=== PATIENT | female | born 1985 | race Caucasian/White ===

== ENCOUNTER 2016-06-29 12:49 | Emergency (ER) | payer OTHER ==
[~2016-06-29] VITALS: Ht 152.4 cm; Wt 80.2 kg
[~2016-06-29 12:49] MED LIST: ADDERALL20 MG PO; ADDERALL30 MG PO; ALBUTEROL SULF8.5 GM IH; AUGMENTIN875 MG PO; Adderall XR; CLONIDINE HCL0.1 MG PO; DILAUDID2 MG PO; EFFEXOR XR150 MG PO; HYDROCODON-ACE1 EAC7 PO; KLONOPIN0.5 M1 PO; KLONOPIN1 MG PO; KLONOPIN2 MG PO; LEVAQUIN500 MG PO; LEXAPRO20 MG PO; METHADONE HCL40 MG PO; NOHOMEMEDS; OXCARBAZEPINE300 MG PO; PERCOCET 5/31 TABLET PO; PHENERGAN25 MG PR; PREDNISONE20 MG PO; PROMETHAZINE HC25 M1 PO; RISPERDAL2 MG PO; SAPHRIS5 MG SL; SEROQUEL50 MG PO; SERTRALINE HCL50 MG PO; TESSALON PERLE100 MG PO; TRAZODONE HCL50 MG PO; XANAX1 MG; XANAX1 MG PO; XANAX2 MG PO; ZOFRAN ODT4 MG PO; ZOLOFT100 MG PO
[2016-06-29] MEDS ORDERED: SEROQUEL100 MG PO (13:51)
[2016-06-29] MEDS ORDERED: NEURONTIN400 MG PO (13:52)
[2016-06-29] MEDS ORDERED: RISPERDAL2 MG PO (13:53)
[2016-06-29 14:03] LABS: ADD MIUA? NO; BILIRUBIN NEGATIVE; BLOOD NEGATIVE; COLOR YELLOW ((YELLOW)); GLUCOSE (STRIP) NEGATIVE; KETONES NEGATIVE; LEUKOCYTES NEGATIVE; NITRITE NEGATIVE; PH, URINE 6.5 (5-8); PROTEIN (STRIP) NEGATIVE; SPECIFIC GRAVITY 1.005 (1.000-1.030); UCUL ADDED? NO; UROBILINOGEN 0.2 MG/DL (0.2-1.0)
[2016-06-29 14:05] LABS: INTERNAL CONTROL VALID? YES
[2016-06-29] MEDS ORDERED: ZITHROMAX Z-PA250 MG PO (14:14)
[2016-06-29] MEDS ORDERED: FLONASE16 G1 BOTH NARES (14:14)
[2016-06-29] MEDS ORDERED: NAPROSYN500 MG PO (14:14)
[2016-06-29] MEDS ORDERED: MUCUS ER600 MG PO (14:14)
[2016-06-29 15:11] VITALS: BP 137/89
== END 2016-06-29 15:11 | disposition home or self-care (01) ==
LOC: EME 12:49
PROVIDERS: Nurse Practitioner Family
DX: H66.92 Otitis media, unspecified, left ear (principal); J06.9 Acute upper respiratory infection, unspecified; J31.0 Chronic rhinitis; F41.9 Anxiety disorder, unspecified; F17.200 Nicotine dependence, unspecified, uncomplicated
CPT/HCPCS: 81003; 84703; 99281; 99284

== ENCOUNTER 2017-09-08 19:54 | Emergency (ER) | payer OTHER ==
[~2017-09-08] VITALS: Ht 152.4 cm; Wt 77.7 kg
[~2017-09-08 19:54] MED LIST changes: +FLONASE16 G1 BOTH NARES; +MUCUS ER600 MG PO; +NAPROSYN500 MG PO; +NEURONTIN400 MG PO; +SEROQUEL100 MG PO; +ZITHROMAX Z-PA250 MG PO
[2017-09-08] MEDS ORDERED: FLOXIN OTIC SOLN5 ML RIGHT EAR (21:09)
[2017-09-08] MEDS ORDERED: OMNICEF300 MG PO (21:09)
[2017-09-08 21:21] VITALS: BP 144/94
== END 2017-09-08 21:30 | disposition home or self-care (01) ==
LOC: EME 19:54
DX: H60.92 Unspecified otitis externa, left ear (principal); H66.92 Otitis media, unspecified, left ear; F17.200 Nicotine dependence, unspecified, uncomplicated; Z88.0 Allergy status to penicillin; Z88.8 Allergy status to other drugs, medicaments and biological substances

== ENCOUNTER 2017-11-21 01:18 | Emergency (ER) | payer OTHER ==
[~2017-11-21] VITALS: Ht 152.4 cm; Wt 77.3 kg
[~2017-11-21 01:18] MED LIST changes: +FLOXIN OTIC SOLN5 ML RIGHT EAR; +OMNICEF300 MG PO
[2017-11-21 01:51] LABS: BASOPHIL (%) 0.2 % (0-1); EOSINOPHIL (%) 2.7 % (0-5); EOSINOPHIL COUNT 0.3 K/uL (0-0.3); HEMATOCRIT 42.5 % (36.0-46.0); HEMOGLOBIN 14.6 G/DL (11.9-15.5); IMMATURE GRANULOCYTE (%) 0.2 % (0.0-0.7); LYMPHOCYTE (%) 28.4 % (15-42); LYMPHOCYTE COUNT 2.7 K/uL (1.0-2.8); MCH 30.7 PG (29.0-34.0); MCHC 34.4 G/DL (30.0-36.0); MCV 89.3 FL (83-99); MONOCYTE (%) 4.4 % (3-12); MONOCYTE COUNT 0.4 K/uL (0-0.8); NEUTROPHIL (%) 64.1 % (45-76); PLATELET COUNT 248 K/uL (156-360); RBC DIS.WIDTH-CV 14.5 % (11.8-14.6); RBC DIS.WIDTH-SD 47.8 % (39-53); RED BLOOD COUNT 4.76 M/uL (3.80-5.20); WHITE BLOOD COUNT 9.4 K/uL (4.1-10.2)
[2017-11-21 02:07] LABS: CHLORIDE 105 mEq/L (99-109); POTASSIUM 3.7 mEq/L (3.7-5.4); SODIUM 139 mEq/L (136-147)
[2017-11-21 02:09] LABS: GLUCOSE 103 mg/dL (70-99)
[2017-11-21 02:12] LABS: SERUM ETHYL ALCOHOL < 10 mg/dL
[2017-11-21 02:13] LABS: CREATININE 0.9 mg/dL (0.6-1.3); GFR ESTIMATE (CALCULATED) > 59 mL/min/
[2017-11-21 02:14] LABS: UREA NITROGEN (BUN) 16 mg/dL (9-23)
[2017-11-21 02:21] LABS: QUANTITATIVE HCG < 4.0 MIU/ML
[2017-11-21 03:15] VITALS: BP 133/85
== END 2017-11-21 03:23 | disposition home or self-care (01) ==
LOC: EME 01:18
PROVIDERS: Emergency Medicine
DX: F32.9 Major depressive disorder, single episode, unspecified (principal); Z04.6 Encounter for general psychiatric examination, requested by authority; J45.909 Unspecified asthma, uncomplicated; F17.200 Nicotine dependence, unspecified, uncomplicated; Z88.0 Allergy status to penicillin; Z88.8 Allergy status to other drugs, medicaments and biological substances
CPT/HCPCS: 80048; 84702; 85025; 90837; 99281; 99285; G0480

== ENCOUNTER 2017-12-03 18:50 | Emergency (ER) | payer OTHER ==
[~2017-12-03] VITALS: Ht 152.4 cm; Wt 70.0 kg
[2017-12-03 19:22] LABS: APPEARANCE CLEAR ((CLEAR)); BILIRUBIN NEGATIVE; BLOOD NEGATIVE; COLOR YELLOW ((YELLOW)); GLUCOSE (STRIP) NEGATIVE; KETONES NEGATIVE; LEUKOCYTES NEGATIVE; NITRITE NEGATIVE; PROTEIN (STRIP) NEGATIVE; SPECIFIC GRAVITY 1.006 (1.000-1.030)
[2017-12-03 19:31] LABS: BASOPHIL (%) 0.3 % (0-1); EOSINOPHIL (%) 1.7 % (0-5); EOSINOPHIL COUNT 0.1 K/uL (0-0.3); HEMATOCRIT 46.3 % (36.0-46.0); HEMOGLOBIN 16.5 G/DL (11.9-15.5); IMMATURE GRANULOCYTE (%) 0.1 % (0.0-0.7); LYMPHOCYTE (%) 30.8 % (15-42); LYMPHOCYTE COUNT 2.4 K/uL (1.0-2.8); MCH 31.4 PG (29.0-34.0); MCHC 35.6 G/DL (30.0-36.0); MONOCYTE (%) 7.1 % (3-12); MONOCYTE COUNT 0.6 K/uL (0-0.8); NEUTROPHIL COUNT 4.7 K/uL (1.8-6.4); PLATELET COUNT 236 K/uL (156-360); RBC DIS.WIDTH-CV 14.6 % (11.8-14.6); RBC DIS.WIDTH-SD 46.9 % (39-53); RED BLOOD COUNT 5.26 M/uL (3.80-5.20); WHITE BLOOD COUNT 7.8 K/uL (4.1-10.2)
[2017-12-03 19:31] LABS: AMPHETAMINE NEGATIVE (500 ng/mL); BARBITURATES NEGATIVE (200 ng/mL); BENZODIAZEPINES NEGATIVE (150 ng/mL); BUPRENORPHINE NEGATIVE (10 ng/mL); COCAINE NEGATIVE (150 ng/mL); METHADONE NEGATIVE (200 ng/mL); METHAMPHETAMINE NEGATIVE (500 ng/mL); OPIATES (MORPHINE) NEGATIVE (100 ng/mL); OXYCODONE NEGATIVE (100 ng/mL); PHENCYCLIDINE NEGATIVE (25 ng/mL); PROPOXYPHENE NEGATIVE (300 ng/mL); THC CANNABINOIDS NEGATIVE (50 ng/mL); TRICYCLIC ANTIDEPRESSANTS NEGATIVE (300 ng/mL)
[2017-12-03 19:42] LABS: ALBUMIN 4.7 g/dL (3.2-4.8); CHLORIDE 108 mEq/L (99-109); POTASSIUM 3.9 mEq/L (3.7-5.4); SODIUM 140 mEq/L (136-147)
[2017-12-03 19:44] LABS: GLUCOSE 71 mg/dL (70-99); TOTAL PROTEIN 7.8 g/dL (6.4-8.3)
[2017-12-03 19:46] LABS: TOTAL BILIRUBIN 2.4 mg/dL (0.0-1.0)
[2017-12-03 19:48] LABS: ALKALINE PHOSPHATASE 109 IU/L (3-129); CREATININE 0.7 mg/dL (0.6-1.3); GFR ESTIMATE (CALCULATED) > 59 mL/min/
[2017-12-03 19:49] LABS: UREA NITROGEN (BUN) 7 mg/dL (9-23)
[2017-12-03 19:50] LABS: AST (GOT) 287 IU/L (2-34); DIRECT BILIRUBIN 0.9 mg/dL (0.0-0.3)
[2017-12-03 19:51] LABS: ALT (GPT) 754 IU/L (3-49); LIPASE 25 U/L (1.0-51.0); QUANTITATIVE HCG < 4.0 MIU/ML
[2017-12-03 19:52] LABS: SOURCE URINE
[2017-12-03 20:59] VITALS: BP 146/98
[2017-12-05 14:27] LABS: CHLAMYDIA TRACHOMATIS NEGATIVE; NEISSERIA GONORRHOEAE NEGATIVE
== END 2017-12-03 21:01 | disposition left against medical advice (07) ==
LOC: EME 18:50
PROVIDERS: Physician Assistant
DX: R10.84 Generalized abdominal pain (principal); R79.89 Other specified abnormal findings of blood chemistry; S29.012A Strain of muscle and tendon of back wall of thorax, initial encounter; X58.XXXA Exposure to other specified factors, initial encounter; J45.909 Unspecified asthma, uncomplicated; G43.909 Migraine, unspecified, not intractable, without status migrainosus; R56.9 Unspecified convulsions; F17.200 Nicotine dependence, unspecified, uncomplicated; Z88.0 Allergy status to penicillin; Z88.8 Allergy status to other drugs, medicaments and biological substances
CPT/HCPCS: 74022; 80048; 80076; 81003; 83690; 84702; 85025; 87491; 87591; 99281; 99284; J0500; J2550

== ENCOUNTER 2017-12-09 02:39 | Emergency (ER) | payer OTHER ==
[~2017-12-09] VITALS: Ht 152.4 cm; Wt 70.5 kg
[2017-12-09 03:18] LABS: MCH 31.6 PG (29.0-34.0); MCHC 34.8 G/DL (30.0-36.0); MCV 90.9 FL (83-99); PLATELET COUNT 201 K/uL (156-360); RBC DIS.WIDTH-CV 14.7 % (11.8-14.6); RBC DIS.WIDTH-SD 49.4 % (39-53); RED BLOOD COUNT 5.06 M/uL (3.80-5.20); WHITE BLOOD COUNT 9.3 K/uL (4.1-10.2)
[2017-12-09 03:29] LABS: CHLORIDE 109 mEq/L (99-109); POTASSIUM 3.9 mEq/L (3.7-5.4); SODIUM 143 mEq/L (136-147)
[2017-12-09 03:31] LABS: GLUCOSE 103 mg/dL (70-99)
[2017-12-09 03:34] LABS: SERUM ETHYL ALCOHOL < 10 mg/dL
[2017-12-09 03:35] LABS: CREATININE 0.8 mg/dL (0.6-1.3); GFR ESTIMATE (CALCULATED) > 59 mL/min/; UREA NITROGEN (BUN) 6 mg/dL (9-23)
[2017-12-09 03:48] LABS: QUANTITATIVE HCG < 4.0 MIU/ML
[2017-12-09 04:11] LABS: THC CANNABINOIDS PRESUMPTIVE POSITIVE (50 ng/mL)
[2017-12-09 04:12] LABS: AMPHETAMINE NEGATIVE (500 ng/mL); BARBITURATES NEGATIVE (200 ng/mL); BENZODIAZEPINES NEGATIVE (150 ng/mL); BUPRENORPHINE NEGATIVE (10 ng/mL); COCAINE NEGATIVE (150 ng/mL); METHADONE NEGATIVE (200 ng/mL); METHAMPHETAMINE NEGATIVE (500 ng/mL); OPIATES (MORPHINE) NEGATIVE (100 ng/mL); OXYCODONE NEGATIVE (100 ng/mL); PHENCYCLIDINE NEGATIVE (25 ng/mL); PROPOXYPHENE NEGATIVE (300 ng/mL); TRICYCLIC ANTIDEPRESSANTS NEGATIVE (300 ng/mL)
[2017-12-09 08:18] LABS: APPEARANCE SL.HAZY ((CLEAR)); BILIRUBIN NEGATIVE; BLOOD LARGE; COLOR YELLOW ((YELLOW)); GLUCOSE (STRIP) NEGATIVE; KETONES NEGATIVE; LEUKOCYTES NEGATIVE; NITRITE NEGATIVE; PROTEIN (STRIP) NEGATIVE; SPECIFIC GRAVITY 1.017 (1.000-1.030)
[2017-12-09 08:27] LABS: BACTERIA 1+ /HPF; EPITHELIAL CELLS 2+ /HPF; MUCUS TRACE /LPF; UCUL ADDED? NO; WHITE BLOOD CELLS 0-5 /HPF (0-5)
[2017-12-09 09:20] VITALS: BP 132/94
== END 2017-12-09 09:27 | disposition home or self-care (01) ==
LOC: EME 02:39
PROVIDERS: Nurse Practitioner Family
DX: F31.9 Bipolar disorder, unspecified (principal); F41.9 Anxiety disorder, unspecified; R10.30 Lower abdominal pain, unspecified; R45.1 Restlessness and agitation; R44.0 Auditory hallucinations; Z91.14 Patient's other noncompliance with medication regimen; F17.200 Nicotine dependence, unspecified, uncomplicated
CPT/HCPCS: 80048; 81003; 84702; 84999; 85027; 90839; 99281; 99285; G0480

== ENCOUNTER 2017-12-09 11:23 | Emergency (ER) | payer OTHER ==
[~2017-12-09] VITALS: Ht 152.4 cm; Wt 70.4 kg
[2017-12-09 13:42] LABS: MCH 31.3 PG (29.0-34.0); MCHC 34.8 G/DL (30.0-36.0); PLATELET COUNT 187 K/uL (156-360); RBC DIS.WIDTH-CV 14.7 % (11.8-14.6); RBC DIS.WIDTH-SD 49.1 % (39-53); RED BLOOD COUNT 5.11 M/uL (3.80-5.20); WHITE BLOOD COUNT 7.6 K/uL (4.1-10.2)
[2017-12-09 13:50] LABS: ALBUMIN 4.5 g/dL (3.2-4.8); CHLORIDE 107 mEq/L (99-109)
[2017-12-09 13:51] LABS: SODIUM 140 mEq/L (136-147)
[2017-12-09 13:53] LABS: GLUCOSE 90 mg/dL (70-99); TOTAL PROTEIN 7.3 g/dL (6.4-8.3)
[2017-12-09 13:55] LABS: TOTAL BILIRUBIN 2.1 mg/dL (0.0-1.0)
[2017-12-09 13:56] LABS: ALKALINE PHOSPHATASE 103 IU/L (3-129); CREATININE 0.7 mg/dL (0.6-1.3); GFR ESTIMATE (CALCULATED) > 59 mL/min/
[2017-12-09 13:58] LABS: AST (GOT) 222 IU/L (2-34); UREA NITROGEN (BUN) 6 mg/dL (9-23)
[2017-12-09 13:59] LABS: ALT (GPT) 599 IU/L (3-49)
[2017-12-09 14:00] LABS: LIPASE 15 U/L (1.0-51.0)
[2017-12-09 14:48] LABS: ACETAMINOPHEN (TYLENOL) < 10 mcg/mL (10-30)
[2017-12-09 17:18] VITALS: BP 128/98
[2017-12-10 10:58] LABS: HEPATITIS B SURFACE ANTIGEN Nonreactive
[2017-12-10 11:00] LABS: ANTI-HEPATITIS B CORE (IGM) Nonreactive
[2017-12-10 11:11] LABS: HEPATITIS C ANTIBODY REACTIVE
[2017-12-10 11:46] LABS: ANTI-HEPATITIS A VIRUS (IGM) Nonreactive
== END 2017-12-09 17:44 | disposition home or self-care (01) ==
LOC: EME 11:23
PROVIDERS: Physician Assistant
DX: K75.9 Inflammatory liver disease, unspecified (principal); J45.909 Unspecified asthma, uncomplicated; F17.200 Nicotine dependence, unspecified, uncomplicated; Z88.0 Allergy status to penicillin; Z88.8 Allergy status to other drugs, medicaments and biological substances
CPT/HCPCS: 76705; 76856; 80053; 80074; 83690; 85027; 99281; 99284; G0480

== ENCOUNTER 2017-12-17 18:14 | Inpatient (IN) | payer OTHER ==
[~2017-12-17] VITALS: Ht 152.4 cm; Wt 70.0 kg
[2017-12-17 18:38] LABS: HEMATOCRIT 44.4 % (36.0-46.0); HEMOGLOBIN 15.7 G/DL (11.9-15.5); MCH 31.4 PG (29.0-34.0); MCHC 35.4 G/DL (30.0-36.0); MCV 88.8 FL (83-99); PLATELET COUNT 198 K/uL (156-360); RBC DIS.WIDTH-CV 14.1 % (11.8-14.6); RBC DIS.WIDTH-SD 46.3 % (39-53); WHITE BLOOD COUNT 7.3 K/uL (4.1-10.2)
[2017-12-17 18:50] LABS: CHLORIDE 104 mEq/L (99-109); POTASSIUM 3.6 mEq/L (3.7-5.4); SODIUM 139 mEq/L (136-147)
[2017-12-17 18:52] LABS: GLUCOSE 205 mg/dL (70-99)
[2017-12-17 18:53] LABS: AMPHETAMINE NEGATIVE (500 ng/mL); BARBITURATES NEGATIVE (200 ng/mL); BENZODIAZEPINES NEGATIVE (150 ng/mL); BUPRENORPHINE NEGATIVE (10 ng/mL); COCAINE NEGATIVE (150 ng/mL); METHADONE NEGATIVE (200 ng/mL); METHAMPHETAMINE NEGATIVE (500 ng/mL); OPIATES (MORPHINE) NEGATIVE (100 ng/mL); OXYCODONE NEGATIVE (100 ng/mL); PHENCYCLIDINE NEGATIVE (25 ng/mL); PROPOXYPHENE NEGATIVE (300 ng/mL); THC CANNABINOIDS NEGATIVE (50 ng/mL); TRICYCLIC ANTIDEPRESSANTS NEGATIVE (300 ng/mL)
[2017-12-17 18:55] LABS: SERUM ETHYL ALCOHOL < 10 mg/dL
[2017-12-17 18:56] LABS: CREATININE 0.8 mg/dL (0.6-1.3); GFR ESTIMATE (CALCULATED) > 59 mL/min/
[2017-12-17 18:58] LABS: UREA NITROGEN (BUN) 7 mg/dL (9-23)
[2017-12-17 18:59] LABS: ACETAMINOPHEN (TYLENOL) < 10 mcg/mL (10-30); SALICYLATE < 5.0 MG/DL (15-30)
[2017-12-17 23:50] VITALS: BP 172/98
[2017-12-18 00:02] VITALS: BP 172/98
[2017-12-18 07:51] VITALS: BP 131/66
[2017-12-18 13:18] VITALS: BP 163/99
[2017-12-18 15:55] VITALS: BP 144/84
[2017-12-19 07:51] VITALS: BP 175/75
[2017-12-19 08:37] VITALS: BP 114/63
[2017-12-19 14:47] VITALS: BP 132/69
[2017-12-20 09:12] VITALS: BP 125/77
[2017-12-20 12:38] LABS: RED BLOOD CELLS 0-5 /HPF (0-5)
[2017-12-20 12:39] LABS: BACTERIA RARE /HPF; EPITHELIAL CELLS RARE /HPF; MUCUS NONE SEEN /LPF; WHITE BLOOD CELLS NONE SEEN /HPF (0-5)
[2017-12-20 15:33] VITALS: BP 133/91
[2017-12-21 09:31] VITALS: BP 131/56
[2017-12-21 15:26] VITALS: BP 122/82
[2017-12-22 08:11] VITALS: BP 114/67
[2017-12-22 16:19] VITALS: BP 129/69
[2017-12-23 07:52] VITALS: BP 93/56
[2017-12-23 16:18] VITALS: BP 119/67
[2017-12-24 07:56] VITALS: BP 109/72
[2017-12-24 10:15] VITALS: BP 130/69
[2017-12-24 16:46] VITALS: BP 140/79
[2017-12-25 07:32] VITALS: BP 124/78
[2017-12-25] MEDS ORDERED: CLONIDINE HCL0.1 MG PO (09:21)
[2017-12-25] MEDS ORDERED: TENEX2 MG PO (09:21)
[2017-12-25] MEDS ORDERED: BUTALB-APAP-CA1 EACH PO (09:23)
[2017-12-25] MEDS ORDERED: OXCARBAZEPINE150 MG PO (09:23)
[2017-12-25] MEDS ORDERED: HYDROXYZINE PAM50 MG PO (09:23)
== END 2017-12-25 11:10 | disposition home or self-care (01) | DRG 885 ==
LOC: EME 18:14 → EDOF 21:03 → 1WEST 21:03 → ENRESERV 22:46 → 1WEST 23:39
PROVIDERS: Emergency Medicine; Psychiatry & Neurology Psychiatry
DX: F31.64 Bipolar disorder, current episode mixed, severe, with psychotic features (principal); T43.592A Poisoning by other antipsychotics and neuroleptics, intentional self-harm, initial encounter; F60.3 Borderline personality disorder; F11.10 Opioid abuse, uncomplicated; F13.10 Sedative, hypnotic or anxiolytic abuse, uncomplicated; F19.10 Other psychoactive substance abuse, uncomplicated; F43.10 Post-traumatic stress disorder, unspecified; F90.1 Attention-deficit hyperactivity disorder, predominantly hyperactive type; R30.0 Dysuria; E87.6 Hypokalemia; J45.909 Unspecified asthma, uncomplicated; G89.29 Other chronic pain; G43.909 Migraine, unspecified, not intractable, without status migrainosus; Z59.0 Homelessness; Z91.14 Patient's other noncompliance with medication regimen; Z79.899 Other long term (current) drug therapy; Z81.8 Family history of other mental and behavioral disorders
CPT/HCPCS: 80048; 81015; 85027; 90839; 93005; 97150 GO; 97165 GO; 99281; 99285; G0480; Q0177